=== PATIENT | female | born 1970 | race Asian ===

== ENCOUNTER 2020-06-01 16:03 | Outpatient (CLI) | payer MEDICAID, OTHER | END 2020-06-01 23:59 | disposition home or self-care (01) | LOC: CARD 16:03 | PROVIDERS: ATTEND Family Medicine | DX: J30.9 Allergic rhinitis, unspecified (principal); R05 Cough; E78.5 Hyperlipidemia, unspecified; S33.9XXA Sprain of unspecified parts of lumbar spine and pelvis, initial encounter; X58.XXXA Exposure to other specified factors, initial encounter; Y93.89 Activity, other specified; Y92.89 Other specified places as the place of occurrence of the external cause; Y99.8 Other external cause status | CPT/HCPCS: 94060; 94726; 94729 ==